=== PATIENT | male | born 1950 | race Caucasian/White ===

== ENCOUNTER 2024-07-24 21:26 | Observation (INO) | payer OTHER, SELFPAY ==
[2024-07-24 13:49] VITALS: BP 162/110
[2024-07-24 14:23] LABS: % Basophils 1.1 % (0-2); % Eosinophils 2.4 % (0-6); % Immature Granulocytes 0.2 % (0-0.5); % Lymphocytes 22.3 % (20.5-51.1); % Monocytes 11.7 % (1.7-9.3); % Neutrophils 62.3 % (42.2-75.2); Absolute Basophils 0.1 10^3/uL (0-0.2); Absolute Eosinophils 0.1 10^3/uL (0-0.7); Absolute Monocytes 0.5 10^3/uL (0.1-0.6); Absolute Neutrophils 2.9 10^3/uL (1.4-6.5); Hematocrit 42.4 % (39.0-52.0); Hemoglobin 13.8 g/dL (13.0-18.0); Mean Corp Hgb Conc. 32.5 g/dL (33.0-37.0); Mean Corpuscular Hgb 28.6 pg (27.0-31.0); Mean Corpuscular Volume 87.8 fL (80.0-94.0); Mean Platelet Volume 10.6 fL (7.4-10.4); Nucleated Red Blood Cells % 0 % (-); Platelet Count 174 10^3/uL (130-400); Red Blood Cell Count 4.83 10^6/uL (4.70-6.10); Red Cell Dist. Width 14.9 % (11.5-14.5); White Blood Cell Count 4.6 10^3/uL (4.8-10.8)
[2024-07-24 14:40] LABS: ALT (SGPT) 15 U/L (0-50); AST (SGOT) 20 U/L (17-59); Albumin 4.4 g/dl (3.5-5.0); Alkaline Phosphatase 63 U/L (38-126); Blood Urea Nitrogen 20 mg/dl (9-20); Calcium 9.6 mg/dl (8.4-10.2); Carbon Dioxide 27 mmol/L (22-30); Chloride 103 mmol/L (98-107); Glucose 122 mg/dl (70-99); Potassium 4.2 mmol/L (3.5-5.1); Sodium 137 mmol/L (135-145); Total Bilirubin 1.2 mg/dl (0.2-1.3); Total Protein 7.5 g/dl (6.3-8.2); eGFR > 60.00
[2024-07-24 15:49] VITALS: BMI 33.5
--- NOTE | 2024-07-24 16:00 | ED.GENMED ---
History of Present Illness
<Jose F Lomeli Jr., PA-C - Last Filed: 07/24/24 20:17>
General
Chief Complaint: Headache
Source: patient
Exam Limitations: none
Time Seen by Provider: 07/24/24 14:51
Nursing documentation reviewed up to this point in time: agreed with
History of Present Illness
History of Present Illness:
74-year-old male past medical history of A-fib currently on Eliquis, previous DVT presenting to the emergency department today with concerns of headache to the right side of the head associated nausea also had numbness to the left hand lasting half
an hour yesterday no ongoing numbness or weakness currently. Denies any chest pain shortness of breath.
Past History
<Jose F Lomeli Jr., PA-C - Last Filed: 07/24/24 20:17>
Past History
ED Past Medical History: Arrthythmia (Atrial fib) and Other (PE, DVT, Renal calculus, Pre diabetic)
ED Past Surgical History: Appendectomy
Social History
Tobacco: Former smoker
Alcohol: Occasional
Personal: Single
Living: alone
Review of Systems
<Jose F Lomeli Jr., PA-C - Last Filed: 07/24/24 20:17>
Review of Systems
Allergies reviewed?: Yes
All Other Systems: ROS reviewed and negative except as documented in HPI and ROS
Phy Exam
<Jose F Lomeli Jr., PA-C - Last Filed: 07/24/24 20:17>
Physical Exam
Physical Exam:
GENERAL: Alert , in no apparent distress
EYE: pupils equal and reactive
NECK: Supple, no significant adenopathy.
ENT: o/p clr, mmm.
CARDIAC: Regular rate and rhythm .
LUNGS: Clear breath sounds bilaterally, no acute respiratory distress, no wheezes/rales/rhonchi
ABDOMEN: Soft, without focal tenderness, no r/g, no cvat
NEUROLOGICAL: Alert and oriented, no focal neuro deficits
SKIN: Warm and dry, skin intact.
MUSCULOSKELETAL: No edema, well perfused.
PSYCH: Normal and appropriate interaction.
Course
<Jose F Lomeli Jr., PA-Nicole - Last Filed: 07/24/24 20:17>
Orders/Labs/Results
Orders:
Orders
07/24/24 13:[address] [CT Head W/o Iv Contrast] Urgent
Comment:
Reason For Exam: headache, left hand numbness
07/24/24 14:04
Complete Blood Count/With Diff Urgent
Comprehensive Metabolic Panel Urgent
07/24/24 15:25
EKG [Electrocardiogram (*1)] Urgent
Reason for Study: Fatigue / Weakness
EKG- Treatment ONCE
07/24/24 16:01
Acetaminophen [Tylenol] 1,000 mg PO NOW STA
07/24/24 16:10
MRI Brain [MR Brain Without Contrast] Urgent
Comment:
Reason For Exam: Neuro request, possible TIA
Recent pill cam endoscopy?: Yes
Abnormal Lab Results
07/24/24
14:04
WBC 4.6 L 10^3/uL
(4.8-10.8)
MCHC 32.5 L g/dL
(33.0-37.0)
RDW 14.9 H %
(11.5-14.5)
MPV 10.6 H fL
(7.4-10.4)
Absolute Lymphs (auto) 1.0 L 10^3/uL
(1.2-3.4)
Monocytes % 11.7 H %
(1.7-9.3)
Glucose 122 H mg/dl
(70-99)
07/24/24 14:04
12/12/24 14:04
Vital Signs
Initial and Last Documented VS:
Initial Vital Signs
Temp Pulse Resp BP Pulse Ox
98.7 F 89 18 162/110 97
07/24/24 13:49 07/24/24 13:49 07/24/24 13:49 07/24/24 13:49 07/24/24 13:49
Last Documented Vital Signs
Temp Pulse Resp BP Pulse Ox
98.7 F 65 18 170/118 97
07/24/24 13:49 07/24/24 18:07 07/24/24 18:07 07/24/24 18:07 07/24/24 18:07
<Ba Zayas, DO - Last Filed: 07/24/24 16:02>
Orders/Labs/Results
Orders:
Orders
07/24/24 13:[address] [CT Head W/o Iv Contrast] Urgent
Comment:
Reason For Exam: headache, left hand numbness
07/24/24 14:04
Complete Blood Count/With Diff Urgent
Comprehensive Metabolic Panel Urgent
07/24/24 15:25
EKG [Electrocardiogram (*1)] Urgent
Reason for Study: Fatigue / Weakness
EKG- Treatment ONCE
07/24/24 16:01
Acetaminophen [Tylenol] 1,000 mg PO NOW STA
07/24/24 16:10
MRI Brain [MR Brain Without Contrast] Urgent
Comment:
Reason For Exam: Neuro request, possible TIA
Recent pill cam endoscopy?: Yes
Abnormal Lab Results
07/24/24
14:04
WBC 4.6 L 10^3/uL
(4.8-10.8)
MCHC 32.5 L g/dL
(33.0-37.0)
RDW 14.9 H %
(11.5-14.5)
MPV 10.6 H fL
(7.4-10.4)
Absolute Lymphs (auto) 1.0 L 10^3/uL
(1.2-3.4)
Monocytes % 11.7 H %
(1.7-9.3)
Glucose 122 H mg/dl
(70-99)
07/24/24 14:04
07/24/24 14:04
Vital Signs
Initial and Last Documented VS:
Initial Vital Signs
Temp Pulse Resp BP Pulse Ox
98.7 F 89 18 162/110 97
07/24/24 13:49 07/24/24 13:49 07/24/24 13:49 07/24/24 13:49 07/24/24 13:49
Last Documented Vital Signs
Temp Pulse Resp BP Pulse Ox
98.7 F 65 18 170/118 97
07/24/24 13:49 07/24/24 18:07 07/24/24 18:07 07/24/24 18:07 07/24/24 18:07
<Jose F Lomeli Jr., PA-C - Last Filed: 07/24/24 20:17>
MDM/Problems Addressed
MDM/Problems Addressed:
74-year-old male presenting to the emergency department today with concerns of headache nausea and numbness to the left hand lasted a half an hour yesterday. On arrival blood pressure is elevated otherwise vital signs are normal. Head CT without
acute abnormalities. Case discussed with neurology recommending MRI for further assessment otherwise no significant ongoing numbness here headache improved after Tylenol.
<Jose F Lomeli Jr., PA-C - Last Filed: 07/24/24 20:17>
*Critical Care Note
Total Time (30-74mins, 75-104mins- exclusive of procedures): Not Applicable
ED Attending Note
<Jose F Lomeli Jr., PA-C - Last Filed: 07/24/24 20:17>
-
Portions of this chart may have been created with voice recognition software.� Occasional wrong word or��sound alike� substitutions may have occurred due to the inherent limitations of voice recognition software.
<Ba Zayas DO - Last Filed: 07/24/24 16:02>
ED Attending Note
Patient seen and examined by attending physician: Yes
I performed the substantive portion of visit, reviewed & personally made and approve the management plan that is documented in note by myself or MARLY.: Yes
ED Attending Note:
Seen with PA examined independently [id number] presents for left hand numbness history of A-fib compliant with his Eliquis, apparently had a right-sided headache as well
Differential as outlined above includes TIA mass stroke radiculopathy less likely
Discharge Plan
Departure
Patient Disposition: Admit
Date of Disposition: 07/24/24
Time of Disposition: 20:16
Admit to: Telemetry
Admit to doctor: Anselmo
Presentation/result/management discussed w/ accepting MD/DO: Hospitalist
Patient with high blood pressure during this ER visit?: No
Condition: Good
Covid-19: Not Applicable
Discharge Problem:
Hand numbness, Headache
Prescriptions:
No Action
metoprolol tartrate 100 mg Tablet
100 mg PO BID
tamsulosin 0.4 mg Capsule
0.4 mg PO DAILY
melatonin 5 mg Capsule
5 mg PO HS
ascorbic acid (vitamin C) [Vitamin C] 1,000 mg Tablet
2 g PO DAILY
lisinopril 10 mg Tablet
10 mg PO DAILY
Eliquis 5 mg Tablet
5 mg PO BID
Referrals:
Giacomo Leone PA-C [Family Provider] -
Interventions
Interventions:
*Risk Screen - Suicide Last Done: 07/24/24 13:49
ED- Fall Risk Assessment Last Done: 07/24/24 14:49
ED- Neurological Assessment Last Done: 07/24/24 14:49
Discharge Date and Time
Print Language: PARAGUAYAN
[2024-07-24] MEDS: TYLENOL 1000 MG PO (16:06)
[2024-07-24 18:07] VITALS: BP 170/118
--- NOTE | 2024-07-24 20:42 | HPS.HSE ---
Family Physician
-
Family Physician: Giacomo Leone
Chief Complaint
-
numbness left hand. right headache
History of Present Illness
74-year-old male past medical history of hypertension, paroxysmal atrial fibrillation on Eliquis, prior DVT, renal calculi, diabetes, chronic venous stasis dermatitis, varicose veins, presenting with headache on the right side of the head described
as throbbing, numbness of the left hand which started yesterday and lasted for an hour. He denies any symptoms currently. Denies any chest pain or shortness of breath. Denies any dizziness or vertigo.
He states that he occasionally checks his blood pressure and his blood pressure is usually 130 systolic.
He has a chronic right foot weakness which is not new. He has decreased vision bilaterally which is old and due to cataracts.
He is a former smoker. He drinks alcohol socially. He denies any drugs.
His father had rheumatic fever.
Medical History
Past Medical History
Past Medical History: Reports Other (hypertension, paroxysmal atrial fibrillation on Eliquis, prior DVT, renal calculi, diabetes, chronic venous stasis dermatitis, varicose veins)
Past Surgical History: Reports Other (Appendectomy)
Social History
Tobacco: Former Smoker
Alcohol: Occasional
Drug: None
Family History
Family History: Not pertinent
Allergies / Home Medications
Allergies reflects when Allergies were last updated in [employer].
Home Medications with original date entered in [employer]
Allergy/Medication List:
Allergies
Allergy/AdvReac Type Severity Reaction Status Date / Time
NSAIDS (Non-Steroidal Allergy Unknown Unknown Verified 07/24/24 13:49
Anti-Inflamma
Home Medications
melatonin 5 mg capsule 5 mg PO HS Sleep 02/27/22
metoprolol tartrate 100 mg tablet 100 mg PO BID Blood pressure 02/27/22
tamsulosin 0.4 mg capsule 0.4 mg PO DAILY Urinary issue 07/18/22
apixaban 5 mg tablet (Eliquis) 5 mg PO BID 07/24/24
ascorbic acid (vitamin C) 1,000 mg tablet (Vitamin C) 2 g PO DAILY 07/24/24
lisinopril 10 mg tablet 10 mg PO DAILY 07/24/24
Review of Systems
-
History Source: Patient
A 12 point ROS was completed and negative except as noted: Yes
Constitutional: Reports No Symptoms
EENT: Reports No Symptoms
Respiratory: Reports No Symptoms
Cardiac: Reports No Symptoms
Abdomen/GI: Reports No Symptoms
: Reports No Symptoms
Musculoskeletal: Reports No Symptoms
Skin: Reports No Symptoms
Neurological: Reports See HPI
Endocrine: Reports No Symptoms
Hematologic/Lymphatic: Reports No Symptoms
Psych: Reports No Symptoms
Physical Exam
Vital Signs
Vital Signs
Temp Pulse Resp BP Pulse Ox
98.7 F 65 18 170/118 97
07/24/24 13:49 07/24/24 18:07 07/24/24 18:07 07/24/24 18:07 07/24/24 18:07
Physical Exam
General: Well Developed, Well Nourished and No Apparent Distress
HEENT: NormoCephalic, Moist mucous membranes and Atraumatic
Respiratory: Clear
Cardiac: S1/S2 and Regular Rhythm; No Murmur or Rub
GI: Soft, Non Tender, Non Distended and Normal Bowel Sounds; No Organomegaly
Rectal: Deferred by Provider
Musculoskeletal: No Clubbing, No Cyanosis and No Edema
Skin: No Rash
Neuro: Nonfocal/grossly intact
Laboratory Results
-
07/24/24 14:04
07/24/24 14:04
Laboratory Results
Total Bilirubin 1.2 mg/dl (0.2-1.3) 07/24/24 14:04
AST 20 U/L (17-59) 07/24/24 14:04
ALT 15 U/L (0-50) 07/24/24 14:04
Alkaline Phosphatase 63 U/L (38-126) 07/24/24 14:04
Data Reviewed
-
Lab Data: Labs Reviewed by me
Old Records: Reviewed
Impression/Plan
-
IMPRESSION:
PLAN:
# TIA/CVA
-symptoms improved
-CT head shows no acute abnormality, small infarcts can be difficult to exclude in the setting of chronic small vessel ischemic change
-Continue Eliquis
-Check MRI brain
-Neurology consulted
# Uncontrolled hypertension
# Essential hypertension
-Continue lisinopril
-may need to increase further
-PRN hydralazine
Paroxysmal atrial fibrillation
-Continue metoprolol
Chronic venous stasis dermatitis/varicose veins
Type 2 diabetes
-Not on medication
Obesity secondary to excess calories
BPH
-Continue tamsulosin
History of left lower extremity DVT
History of nephrolithiasis
DNR/DNI
DVT prophylaxis�Eliquis
Regular diet
[2024-07-24 22:56] VITALS: BP 171/113
[2024-07-24 22:57] VITALS: BMI 35.7
--- NOTE | 2024-07-24 23:40 | PTCARENOTE ---
Pt arrive to unit via strecher @ 2240 and walked to room. Pt with a steady gate. NIH-0. BP elevated @ 171/113 overnight [employer] TECHNICIAN notified regarding BP . Pt has PRN hydralazine order for SBP >180. Neuro check and NIH added
[2024-07-24] MEDS: LOPRESSOR 100 MG PO (23:49)
[2024-07-24] MEDS: MELATONIN 5 MG PO (23:49)
[2024-07-24] MEDS: ELIQUIS 5 MG PO (23:50)
[2024-07-25 03:52] VITALS: BP 144/88
[2024-07-25 06:19] VITALS: BMI 35.2
[2024-07-25 07:15] VITALS: BP 137/83
--- NOTE | 2024-07-25 08:32 | CON.NEURO ---
Consultation
Order
Date of Consultation: 07/25/24
Requesting Provider: Alyssa Villagomez MD
Reason for Consult: Hand numbness
Neurology Consultation Note.
HPI: This is a 74-year-old RH man who presented to [facility] on 07/24/2024 with sensory symptoms. According to the patient he developed transient numbness over the dorsal surface of his right hand lasting for 30 minutes that
followed new holocephalic nonpositional headache that lasted several hours within several hours. The patient took acetaminophen with no improvement prompting him to seek medical attention. Reports no change in vision, strength, balance, radicular
neck pain.. Patient states that he has been compliant with Eliquis.
ER VS: 162/410�170/118, 89, afebrile.
EKG: A-Fib, QTc Int : 407 ms
PDMP:none
Labs:gluc 122
Brain MRI�no acute abnormalities.
PMH:A-Fib, HTN, IGT, BPH, h/o DVT, nephrolithiasis, BMI 35, chronic venous stasis dermatitis
SH: lives alone; independent in [place], former smoker; used to work at [employer]; former smoker, social [employer] use including '[place]'
FH: Not contributory.
All: NSAIDs
ROS:Constitutional: Negative. Negative for chills, fever and unexpected weight change.
HENT: Negative for ear pain, hearing loss, tinnitus and trouble swallowing.
Eyes: Negative. Negative for photophobia, pain and visual disturbance.
Respiratory: Negative for cough, choking and shortness of breath.
Cardiovascular: Negative for chest pain, palpitations and leg swelling.
Gastrointestinal: Negative for abdominal pain and vomiting.
Endocrine: Negative. Negative for cold intolerance.
Genitourinary: Positive for urinary urgency
Musculoskeletal: Negative for back pain, gait problem, neck pain and neck stiffness.
Skin: Negative for rash.
Allergic/Immunologic: Negative. Negative for immunocompromised state.
Neurological: Positive for transient hand hand numbness
Psychiatric/Behavioral: Negative for behavioral problems, confusion and hallucinations.
General: Well developed. In no acute distress.
Cardio: Regular rate and rhythm without murmur. Extremities are without cyanosis or edema.
Neuro:
Mental Status: Alert, oriented to person, place, and date. Normal attention and recall. Good fund of knowledge. Follows complex requests across the midline. Comprehension, naming, and repetition intact. Anxious.
Cranial Nerves: . Pupils are equally round and reactive to light. EOMs full. Visual alvarado full to confrontation. No ptosis. No nystagmus. V1-V3 intact to light touch and pinprick bilaterally, symmetric. Face symmetric. Normal hearing AU.
The palate elevated well. SCMs and traps 5/5. Tongue midline. No dysarthria.
Motor: Normal bulk and tone. No pronator or arm drift. Strength 5/5 throughout. No clonus.
Reflexes: 2+ throughout the upper extremities and 3+knees. 2/2 in AJs. Plantar responses flexor bilaterally.
Sensory: Normal vibration at the toes
Coordination: No dysmetria or tremor.
Gait: deferred
Assessment and Plan:
I. Transient right hand numbness. Differential diagnosis includes TIA versus sensory aura versus cervical radiculopathy, less likely focal neuropathy
II. A-fib
III. HTN
-Strict blood pressure and glycemic control.
-Outpatient nerve conduction studies and EMG of UEs
-Continue Eliquis for stroke prophylaxis.
-Outpatient neurology follow-up in 1-2 weeks
I personally reviewed all radiology and labs along with past medical records pertinent to current medical problems. Total time spent in patient care is 60 minutes.
Thank you for allowing us to participate in the care of this patient. Please do not hesitate to contact us with any questions or concerns.
Subjective/Objective
Subjective Data
Date of Service: July 25, 2024
Objective Data
Vital Signs
Temp Pulse Resp BP Pulse Ox
36.6 C 63 18 137/83 98
07/25/24 07:15 07/25/24 07:15 07/25/24 07:15 07/25/24 07:15 07/25/24 07:15
Lab Results
07/24/24 14:04
07/24/24 14:04
Sodium 137 mmol/L (135-145) 07/24/24 14:04
Potassium 4.2 mmol/L (3.5-5.1) 07/24/24 14:04
BUN 20 mg/dl (9-20) 07/24/24 14:04
Glucose 122 mg/dl (70-99) H 07/24/24 14:04
Calcium 9.6 mg/dl (8.4-10.2) 07/24/24 14:04
Patient Allergies
NSAIDS (Non-Steroidal Anti-Inflamma Allergy (Unknown, Verified 07/24/24 13:49)
Unknown
Medications
-
Active Medications
Generic Name Dose Route Start Last Admin
Trade Name Freq PRN Reason Stop Dose Admin
Apixaban 5 mg 07/25/24 08:00
Apixaban (Eliquis) 5 Mg Tablet PO 08/22/24 07:59
BID ZAC
Ascorbic Acid 2,000 mg 07/25/24 08:00
Ascorbic Acid 500 Mg Tablet PO 08/22/24 07:59
DAILY ZAC
Hydralazine HCl 5 mg 07/24/24 22:39
Hydralazine 20 Mg/Ml Vial IV 08/21/24 22:38
Q6HPRN PRN
SBP>180
Lisinopril 10 mg 07/25/24 08:00
Lisinopril 10 Mg Tablet PO 08/22/24 07:59
DAILY ZAC
Melatonin 5 mg 07/24/24 22:45 07/24/24 23:49
Melatonin 5 Mg Tablet PO 08/21/24 22:44 5 mg
HS ZAC Administration
Metoprolol Tartrate 100 mg 07/25/24 08:00
Metoprolol 100 Mg Regular Release Tablet PO 08/22/24 07:59
BID ZAC
Sodium Chloride 0 flush 07/24/24 23:00
Sodium Chloride 0.9% (Flush) Syringe IV 08/21/24 22:59
PER PROTOCOL ZAC
Tamsulosin HCl 0.4 mg 07/25/24 08:00
Tamsulosin 0.4 Mg Capsule PO 08/22/24 07:59
DAILY ZAC
Home Medications
�Medication �Instructions �Recorded
melatonin 5 mg capsule 5 mg PO HS Sleep 02/27/22
metoprolol tartrate 100 mg tablet 100 mg PO BID Blood pressure 02/27/22
tamsulosin 0.4 mg capsule 0.4 mg PO DAILY Urinary issue 02/27/22
apixaban 5 mg tablet (Eliquis) 5 mg PO BID 07/24/24
ascorbic acid (vitamin C) 1,000 mg 2 g PO DAILY 07/24/24
tablet (Vitamin C)
lisinopril 10 mg tablet 10 mg PO DAILY 07/24/24
Vital Signs and Labs
-
Vital Signs and Labs:
Vital Signs
Temp Pulse Resp BP Pulse Ox
36.6 C 63 18 137/83 98
07/25/24 07:15 07/25/24 07:15 07/25/24 07:15 07/25/24 07:15 07/25/24 07:15
Lab Results
07/24/24 14:04
07/24/24 14:04
Sodium 137 mmol/L (135-145) 07/24/24 14:04
Potassium 4.2 mmol/L (3.5-5.1) 07/24/24 14:04
BUN 20 mg/dl (9-20) 07/24/24 14:04
Glucose 122 mg/dl (70-99) H 07/24/24 14:04
Calcium 9.6 mg/dl (8.4-10.2) 07/24/24 14:04
Medications
-
Medications:
Generic Name Dose Route Start Last Admin
Trade Name Freq PRN Reason Stop Dose Admin
Apixaban 5 mg 07/25/24 08:00 07/25/24 09:24
Apixaban (Eliquis) 5 Mg Tablet PO 08/22/24 07:59 5 mg
BID ZAC Administration
Ascorbic Acid 2,000 mg 07/25/24 08:00 07/25/24 09:23
Ascorbic Acid 500 Mg Tablet PO 08/22/24 07:59 2,000 mg
DAILY ZAC Administration
Hydralazine HCl 5 mg 07/24/24 22:39
Hydralazine 20 Mg/Ml Vial IV 08/21/24 22:38
Q6HPRN PRN
SBP>180
Lisinopril 10 mg 07/25/24 08:00 07/25/24 09:23
Lisinopril 10 Mg Tablet PO 08/22/24 07:59 10 mg
DAILY ZAC Administration
Melatonin 5 mg 07/24/24 22:45 07/24/24 23:49
Melatonin 5 Mg Tablet PO 08/21/24 22:44 5 mg
HS ZAC Administration
Metoprolol Tartrate 100 mg 07/25/24 08:00 07/25/24 09:23
Metoprolol 100 Mg Regular Release Tablet PO 08/22/24 07:59 100 mg
BID ZAC Administration
Sodium Chloride 0 flush 07/24/24 23:00
Sodium Chloride 0.9% (Flush) Syringe IV 08/21/24 22:59
PER PROTOCOL ZAC
Tamsulosin HCl 0.4 mg 07/25/24 08:00 07/25/24 09:23
Tamsulosin 0.4 Mg Capsule PO 08/22/24 07:59 0.4 mg
DAILY ZAC Administration
Home Medications
-
Home Medications
melatonin 5 mg capsule 5 mg PO HS Sleep 02/27/22
metoprolol tartrate 100 mg tablet 100 mg PO BID Blood pressure 02/27/22
tamsulosin 0.4 mg capsule 0.4 mg PO DAILY Urinary issue 02/27/22
apixaban 5 mg tablet (Eliquis) 5 mg PO BID 07/24/24
ascorbic acid (vitamin C) 1,000 mg tablet (Vitamin C) 2 g PO DAILY 07/24/24
lisinopril 10 mg tablet 10 mg PO DAILY 07/24/24
--- NOTE | 2024-07-25 08:52 | W.PN.UPDATE ---
Update Note
Progress Note Update
I saw and evaluated the patient. I reviewed the resident�s note and agree with findings and plan as documented in the resident�s note.
No new complaints.
Gen: NAD, Awake and alert
Eyes: EOMI, PERRLA, no scleral icterus.
Neck: supple.
CV: RRR, +S1/S2, no m/r/g.
Resp: CTAB, no rales, wheezes, or rhonchi.
Abd: +BS, soft, NT, ND
Skin: B/L LE chronic venous stasis dermatitis
Neuro: CN 2-12 intact, non-focal.
Psych: Normal mood and affect.
MRI brain: No acute intracranial abnormality noted. Chronic senescent changes.
Possible TIA:
-symptoms improved
-MRI brain without acute CVA
-Continue Eliquis
-Neurology following. Case discussed with Dr. Henley. The pt is medically cleared for d/c. No indication for any medication changes. Outpt NCS/EMG LUE recommended.
Essential hypertension with hypertensive urgency:
-BPs improved
-cont Lisinopril/BB
Other problems:
Paroxysmal atrial fibrillation: cont BB/Eliquis
Obesity due to excess calories
Chronic venous stasis dermatitis/varicose veins
DM2: check a1c
BPH: cont tamsulosin
h/o LLE DVT
h/o nephrolithiasis
DNR/DNI
Eliquis
Total time spent on d/c = 33 min. This included today's physical exam, progress note, review of laboratory and diagnostic data, preparation of discharge documents and prescriptions, and discussions about the pt's hospital course and discharge plan
with the patient and other medical case manager involved in the patient's care.
[2024-07-25 08:57] VITALS: BMI 35.2
[2024-07-25] MEDS: LOPRESSOR 100 MG PO (09:23)
[2024-07-25] MEDS: VITAMIN C 2000 MG PO (09:23)
[2024-07-25] MEDS: ZESTRIL 10 MG PO (09:23)
[2024-07-25] MEDS: FLOMAX 0.4 MG PO (09:23)
[2024-07-25] MEDS: ELIQUIS 5 MG PO (09:24)
--- NOTE | 2024-07-25 10:07 | W.PN.HOSP.TC ---
Today's Communication/Plan
-
Is medically stable for discharge and is cleared by neurology.
Assessment / Plan
Assessment / Plan
74-year-old male presenting with throbbing right-sided headache and numbness limited to the left hand which only lasted for an hour.
Head CT (07/24):
1. No acute intracranial abnormalities appreciated.
2. Mild atrophy and mild chronic small vessel change.
3. Small infarcts can be difficult to exclude in the setting of chronic small vessel ischemic change. If clinical concern remains high, consider MRI brain.
Brain MRI (07/24):
Axial FLAIR sequence demonstrates moderate hyperintensity within the periventricular and deep subcortical white matter and brainstem, likely related to chronic small vessel ischemic changes. No suspicious abnormal parenchymal signal intensity, mass
effect, midline shift, or extra-axial collection. No hydrocephalus. No abnormal signal on diffusion imaging to suggest acute infarct.
Chronic conditions prior to admission
Essential hypertension
Paroxysmal atrial fibrillation on Eliquis
History of DVT
History of Nephrolithiasis
Chronic venous stasis dermatitis/ varicose veins
BPH
Obesity
#Left hand numbness possibly TIA:
-Numbness has not re-occurred
-Neuro-exam is normal
-Head CT/Brain MRI does not suggest CVA
-Neurology following. Case discussed with Dr. Henley. The pt is medically cleared for d/c. No indication for any medication changes. NCS/EMG LUE recommended as OP.
-Continue Eliquis
#Essential hypertension
-BP improved
-Cont Lisinopril and Metoprolol
#Paroxysmal atrial fibrillation
-Cont Metoprolol and Eliquis
#BPH
-Cont tamsulosin
Anticipated Discharge: Today
Subjective/Interval History
-
Date of Service: July 25, 2024
Patient states numbness has not re-occurred. Does not feel speech is different than usual. No complaints of weakness or tingling. No problem with swallowing. Headache has resolved.
Objective Data
-
Vital Signs:
Vital Signs
Temp Pulse Resp BP Pulse Ox
97.8 F 63 18 137/83 98
07/25/24 07:15 07/25/24 07:15 07/25/24 07:15 07/25/24 07:15 07/25/24 07:15
Review of Systems
-
History Source: Patient
All other systems: Reviewed and negative
Physical Exam
-
General: Well Developed and No Apparent Distress
HEENT: Normocephalic, Atraumatic and Moist Mucous Membranes
Respiratory: Clear to Auscultation
Cardiac: Regular Rhythm and S1/S2; Negative Murmur, Rub or Gallop
GI: Soft, Nontender, Nondistended and Normal Bowel Sounds; Negative Organomegaly
Rectal: Deferred by Provider
Musculoskeletal: No Clubbing, No Cyanosis and No Edema
Skin: Negative Rash
Neuro: Nonfocal/Grossly Intact
[2024-07-25 10:13] LABS: Glycohemoglobin (HgbA1c) 5.8 % (4.0-5.6)
--- NOTE | 2024-07-25 11:23 | W.DCSUMMARY ---
Addendum entered and electronically signed by Сергей Millan MD 07/25/24 12:54:
Read, reviewed, and agree. See same day progress note for additional details.
Original Note:
Discharge Summary
Discharge Data
Date of Admission: 07/24/24
Date of Discharge: 07/25/24
-
Pending Results: No
Hospital Course
Patient is a 74-year-old male who presented to the ED with throbbing right-sided headache and numbness limited to the left hand which only lasted for half an hour. On arrival blood pressure was elevated compared to baseline.
Rest of vitals were normal and initial labs in ED were within normal limits. Head CT was done which did not show any acute abnormalities. Neuro exam was normal. Case was discussed with neurology, who recommended MRI for further assessment.
Headache resolved after Tylenol was administered in the ED. Patient was admitted for rule out of possible CVA.
Head CT (07/24):
1. No acute intracranial abnormalities appreciated.
2. Mild atrophy and mild chronic small vessel change.
3. Small infarcts can be difficult to exclude in the setting of chronic small vessel ischemic change. If clinical concern remains high, consider MRI brain.
Brain MRI (07/24):
Axial FLAIR sequence demonstrates moderate hyperintensity within the periventricular and deep subcortical white matter and brainstem, likely related to chronic small vessel ischemic changes. No suspicious abnormal parenchymal signal intensity, mass
effect, midline shift, or extra-axial collection. No hydrocephalus. No abnormal signal on diffusion imaging to suggest acute infarct.
MRI brain did not show any signs of acute CVA. Also, numbness did not recur during stay. Case was discussed with Dr. Henley (neurology); per neurology, this could have been a TIA and patient is medically clear for discharge without need for any
medication changes. Patient was advised to do NCS/EMG of left upper extremity as outpatient.
Blood pressure improved during stay by continuing home meds including lisinopril and metoprolol 100 twice daily. Also, Eliquis and metoprolol were continued for A-fib.
Chronic conditions prior to admission
Essential hypertension
Paroxysmal atrial fibrillation on Eliquis
History of DVT
History of nephrolithiasis
Chronic venous stasis dermatitis/ varicose veins
BPH
Obesity
Discharge Plan
-
Patient Disposition: Home (Routine Discharge)
Discharge Diagnosis/Procedures: Left upper extremity paresthesias, left upper extremity radiculopathy versus transient ischemic attack
Condition: Good
Diet: Diabetic, Carb Controlled
Activity: As tolerated
Driving Restrictions: As prior to admission
Others Tests: Recommend left upper extremity nerve conduction study/EMG
Referrals:
Giacomo Leone PA-C [Family Provider] - in less than 1 week
Prescriptions:
Continued
metoprolol tartrate 100 mg Tablet
100 mg PO BID
tamsulosin 0.4 mg Capsule
0.4 mg PO DAILY
melatonin 5 mg Capsule
5 mg PO HS
ascorbic acid (vitamin C) [Vitamin C] 1,000 mg Tablet
2 g PO DAILY
lisinopril 10 mg Tablet
10 mg PO DAILY
Eliquis 5 mg Tablet
5 mg PO BID
Discharge Orders:
Discharge Patient (As Directed); Ordered 07/25/24
Ordered By: Сергей Millan
Discharge Date and Time
Print Language: AMHARIC
[2024-07-25 11:30] VITALS: BP 138/84
--- NOTE | 2024-07-25 12:37 | CM ---
Received notification that patient is medically cleared for discharge. Met with patient to obtain information for assessment and to review SALAMANCA which was signed and put on chart. Patient stated that he lives with a friend in a one story home with
one step to enter. He is independent with his ADLs, personal care, dressing and bathing. 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 He can drive and can transport himself to his appointments and do all of his own shopping.
Patient has never been to a SNF.
He has had VN in the past through .
He has a prescription plan and uses, [facility] pharmacy in [place] for all of his medications.
Patient's PCP is, Giacomo Leone.
Patient stated that his friend will transport him home and he feels ready for discharge.
Plan: Case management will continue to follow and assist with discharge planning. Home.
== END 2024-07-25 12:44 | disposition home or self-care (01) ==
LOC: 3 WEST ACU 21:26
PROVIDERS: Emergency Medicine; ADMITTING PHYSICIAN Hospitalist; ATTENDING PHYSICIAN Internal Medicine; CONSULT PHYSICIAN Psychiatry & Neurology Neurology; EMERGENCY PHYSICIAN Emergency Medicine; FAMILY PHYSICIAN Physician Assistant Medical
DX: R51.9 Headache, unspecified (principal); R20.0 Anesthesia of skin; R20.2 Paresthesia of skin; I48.0 Paroxysmal atrial fibrillation; R53.83 Other fatigue; R53.1 Weakness; I10 Essential (primary) hypertension; I87.2 Venous insufficiency (chronic) (peripheral); E11.36 Type 2 diabetes mellitus with diabetic cataract; J34.1 Cyst and mucocele of nose and nasal sinus; I67.82 Cerebral ischemia; N40.0 Benign prostatic hyperplasia without lower urinary tract symptoms; I87.8 Other specified disorders of veins; G31.9 Degenerative disease of nervous system, unspecified; E66.09 Other obesity due to excess calories; Z68.35 Body mass index [BMI] 35.0-35.9, adult; Z79.01 Long term (current) use of anticoagulants; Z86.718 Personal history of other venous thrombosis and embolism; Z87.891 Personal history of nicotine dependence; Z87.442 Personal history of urinary calculi; Z86.711 Personal history of pulmonary embolism; Z88.6 Allergy status to analgesic agent; Z66 Do not resuscitate; Z60.2 Problems related to living alone
CPT/HCPCS: 70450; 70551; 80053; 83036; 85025; 93005; 99285

== ENCOUNTER 2025-03-02 07:13 | Day surgery (SDC) | payer OTHER, SELFPAY ==
--- NOTE | 2025-03-02 15:09 | OID.L.PAT ---
Pulmonary Nodule Pat Letter
- -
03/02/25
NATALIE GUZMAN
[address]
[place] [id number]
Deachinedu ESTRADA,
A pulmonary nodule was seen on an imaging study done by [facility]. This was reviewed by the [facility] Pulmonary Nodule Advisory Board and the following recommendation was made:
Recommendation: Follow up CT Chest in 3 months.
If you have any questions, please do not hesitate to contact your primary care physician. If you are in need of a Physician, you can go to [email or web address] and click on 'Find a Provider'. Type 'Family Medicine' in the search.
Oncology Nurse Navigator
[facility]
[phone]
--- NOTE | 2025-03-02 15:09 | OID.L.REC ---
Pulmonary Nodule Follow Up
- Recommendation
03/02/25
Pulmonary Nodule Review Recommendations
Your patient, NATALIE GUZMAN, had a pulmonary nodule seen on an imaging study done on 02/17/2025 in the [facility] Radiology Department.
This was reviewed by the [facility] Pulmonary Nodule Advisory Board and the following recommendation was made:
Recommendation: Follow up CT Chest in 3 months.
If you have any questions, please do not hesitate to contact us.
Sincerely,
Oncology Nurse Navigator
[facility]
[phone]
== END 2025-03-02 09:52 | disposition home or self-care (01) ==
LOC: CATH 07:13
PROVIDERS: ATTENDING PHYSICIAN Nuclear Medicine Nuclear Cardiology; FAMILY PHYSICIAN Physician Assistant Medical; REFERRING PHYSICIAN Internal Medicine Cardiovascular Disease
DX: I08.1 Rheumatic disorders of both mitral and tricuspid valves (principal); I48.19 Other persistent atrial fibrillation; I10 Essential (primary) hypertension; E78.5 Hyperlipidemia, unspecified; G47.33 Obstructive sleep apnea (adult) (pediatric); N40.0 Benign prostatic hyperplasia without lower urinary tract symptoms; E66.9 Obesity, unspecified; Z68.37 Body mass index [BMI] 37.0-37.9, adult; Z86.718 Personal history of other venous thrombosis and embolism; Z87.891 Personal history of nicotine dependence; Z79.01 Long term (current) use of anticoagulants
CPT/HCPCS: 93312; 93320; 93325

== ENCOUNTER 2025-03-03 06:14 | Day surgery (SDC) | payer OTHER, SELFPAY ==
[2025-02-17 11:00] VITALS: BMI 37.4
[2025-02-17 11:49] LABS: Hematocrit 41.3 % (39.0-52.0); Hemoglobin 13.7 g/dL (13.0-18.0); Mean Corp Hgb Conc. 33.2 g/dL (33.0-37.0); Mean Corpuscular Volume 89.2 fL (80.0-94.0); Nucleated Red Blood Cells % 0 % (-); Platelet Count 170 10^3/uL (130-400); Red Cell Dist. Width 14.1 % (11.5-14.5)
[2025-02-17 11:59] LABS: INR 1.09; PT 14.4 Sec (11.4-14.6)
[2025-02-17 12:38] LABS: ALT (SGPT) 12 U/L (0-50); AST (SGOT) 16 U/L (17-59); Albumin 4.6 g/dl (3.5-5.0); Alkaline Phosphatase 43 U/L (38-126); Blood Urea Nitrogen 25 mg/dl (9-20); Calcium 10.0 mg/dl (8.4-10.2); Carbon Dioxide 26 mmol/L (22-30); Chloride 104 mmol/L (98-107); Estimated Creatinine Clearance 78 ml/min; Glucose 108 mg/dl (70-99); Magnesium 1.9 mg/dl (1.6-2.3); Potassium 4.2 mmol/L (3.5-5.1); Sodium 140 mmol/L (135-145); Total Protein 7.7 g/dl (6.3-8.2); eGFR > 60.00
[2025-03-03] VITALS (10 sets, daily range): BP systolic 105–151; BP diastolic 67–110
[2025-03-03] MEDS: NSS 500 IV (07:17)
[2025-03-03 08:37] LABS: ACT-LR - POC 231 Seconds (116-155)
[2025-03-03 08:56] LABS: ACT-LR - POC 260 Seconds (116-155)
--- NOTE | 2025-03-03 09:28 | ITS.CL.ABL ---
Criminal Justice Teacher - Ablation
Ablation
Procedure Report:
ELECTROPHYSIOLOGY ABLATION STUDY
DATE:: March 03, 2025�����������������������������REFERRING: Dr. Graham
INDICATION: Longstanding persistent supraventricular tachycardia in the form of atrial fibrillation.��Given duration of atrial fibrillation the patient did seek an evaluation for convergent maze and after discussion with surgery the plan was to
proceed with PVI first
HISTORY: See H and P.��As above
ANTIARRHYTHMIC DRUG: Discussed class I class III antiarrhythmics the patient opted for pulmonary vein isolation
PRE-PROCEDURE MOLLY: No atrial thrombus
PRESENTING RHYTHM: A-fib
'TIME-OUT':��called and confirmed.
SEDATION/ANESTHESIA:��provided via the anesthesia department using general anesthesia (LMA).
INTRAVENOUS/ARTERIAL ACCESS:
Right femoral venous - 8Fr
Left femoral venous - 8 Fr, 6 Fr
Ultrasound guidance for bilateral femoral vein access was utilized by me to obtain access with demonstration of normal anatomy
CHADS-VASC Score:
HAS-Bled Score
PROCEDURE:
1.��A decapolar CS catheter was placed within the CS for mapping and pacing.��This was also used as the reference catheter for the 3-D map.
2. The intracardiac ultrasound catheter was positioned in the RA to identify the FO for targeting of transseptal puncture, assist��in identification of the pulmonary vein ostia, monitoring pre and post ablation pulmonary vein flow velocities,
monitoring for 'bubble' formation during RF application as a sign of thermal injury,��and to monitor for pericardial effusion during mapping and ablation procedure.���Left atrial size, LV ejection fraction, and pulmonary vein flows were monitored
pre and post ablation procedure. The other valves were inspected and found to be free of significant regurgitation or stenosis.
3.��Half of the calculated heparin bolus was administered prior to the first transeptal puncture.��Transseptal puncture was performed to diagnose RA and LA pressure so that safety of LA mapping and ablation could be further assessed, and to access
the left atrium and pulmonary veins for mapping and ablation.��This entailed advancing an 16.8 Chadian sheath, RF wire with dilator into the superior vena cava and withdrawing both (monitoring intracardiac ultrasound, fluoroscopy and tip pressure)
with the tip oriented toward the atrial septum.��The fossa ovalis was engaged (indicated by sudden displacement of the sheath tip as well as tenting of the fossa seen on intracardiac ultrasound).��Left atrial access required a pass with the
Brockenbrough needle extended.��Left atrial catheter position was confirmed by pressure monitoring (RA mean pressure 8 mm Hg and LA mean presure 14 mm Hg), LA saturation (99%),��as well as fluoroscopy.��The sheath was advanced over the dilator and
positioned in the left atrium.��The remainder of the calculated heparin bolus was administered and heparin was
infused to maintain ACT at 300 -350 seconds throughout the case.
4.��RA pacing was performed via the proximal decapolar poles and LA pacing was performed via the distal decapolr poles.
5. A quadrapolar catheter was first positioned at the His position for His Bundle recording which was tagged via the 3-D Navex sytem, and then passed to the RVA for RV pacing and recording.
6. The grid and Penta spline catheter were placed in each of the LIPV, LSPV, RSPV and the RIPV.��
7.��Next, a 3-D map was created using Navex.���A 3-D reconstructed CT image was compared to the 3-D Navex map to assist in anatomic interpretation, mapping and ablation.��The CT image and the NavX image were fused.
8. A total of 76 lesions were given to the pulmonary veins and to the roof posterior wall and and inferior portion of the left atrium. 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
pulmonary vein. We then performed in flower oppose the LA roof LA posterior wall and LA floor line. A-fib persisted throughout all these lesion sets. The patient was converted to sinus rhythm and remapped with the grid catheter. This
demonstrated continued areas of voltage at the floor of the left atrium and at the dome of the left atrium just outside the left superior pulmonary vein towards left atrial appendage. Additional lesions in basket and flower pose were given which
brought about durable entrance and exit block on the LA roof posterior wall and floor. Entrance exit block was reconfirmed in the pulmonary veins. 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
Glycopyrrolate was given before lesions and EP study post procedure demonstrated normal sinus node recovery time, normal AV conduction, and no inducible tachyarrhythmias. The patient did require a 300 J synchronized biphasic shock which was
unsuccessful and a 360 J second shock which restored sinus rhythm and enabled us to check for exit block in all the structures.
9. Normal sinus node and AV node function noted.
TOTAL FLOURO TIME: 14 minutes 112 mGy
TOTAL RF DURATION: 0 minutes
REVERSAL OF HEPARIN: 40 mg of protamine, slow IV administration
COMPLICATIONS:
None
Intracardiac US shows no pericardial effusion post ablation.
SUMMARY:��
Complex left atrial mapping and ablation.
Isolation of all 5 pulmonary veins as well as the LA roof posterior wall and floor of the left atrium.
RECOMMENDATIONS:
1. Ambulate in 4 hours
2. Resume anticoagulation
3.��Consider same-day discharge
4.��If any further recurrence could consider class III antiarrhythmic or rereferral for convergent maze procedure
Copy to: Dr. Graham at [facility] cardiology
[2025-03-03] MEDS: FLOMAX 0.4 MG PO (11:10)
--- NOTE | 2025-03-03 14:27 | W.PN.UPDATE ---
Update Note
Progress Note Update
74 yo WM s/p PVI (Same day). He denies cp, sob, melodie diet, voiding, amb w/o dizziness, EKG SR with PAC's, R fem site c/d/i no HT, soft. He will resume Eliquis tonight and continue metoprolol. Activity restrictions reviewed. He will f/u Dr. Tena
in 3 mo. He is for d/c home after 2pm.
== END 2025-03-03 14:25 | disposition home or self-care (01) ==
LOC: CATH 06:14
PROVIDERS: ATTENDING PHYSICIAN Internal Medicine Cardiovascular Disease; FAMILY PHYSICIAN Physician Assistant Medical; REFERRING PHYSICIAN Internal Medicine Cardiovascular Disease
DX: I48.19 Other persistent atrial fibrillation (principal); E66.9 Obesity, unspecified; Z68.37 Body mass index [BMI] 37.0-37.9, adult; I10 Essential (primary) hypertension; E78.5 Hyperlipidemia, unspecified; N20.0 Calculus of kidney; Z86.718 Personal history of other venous thrombosis and embolism; Z86.711 Personal history of pulmonary embolism; D50.9 Iron deficiency anemia, unspecified; R73.03 Prediabetes; G47.00 Insomnia, unspecified; N40.1 Benign prostatic hyperplasia with lower urinary tract symptoms; R33.8 Other retention of urine; Z79.01 Long term (current) use of anticoagulants; Z79.899 Other long term (current) drug therapy; F17.200 Nicotine dependence, unspecified, uncomplicated; I47.10 Supraventricular tachycardia, unspecified; G47.33 Obstructive sleep apnea (adult) (pediatric); I49.1 Atrial premature depolarization
CPT/HCPCS: C1732; C1730; C1894; C1769; C1766; C1892; C1759; 36415; 75572; 80053; 83735; 85025; 85347; 85610; 86850; 86900; 86901; 93005; 93656; 93657; C1733; Q9967